=== PATIENT | female | born 1960 | race Caucasian/White ===

== ENCOUNTER 2018-01-07 12:02 | Inpatient (IN) | payer OTHER ==
[~2018-01-07] VITALS: Ht 162.6 cm; Wt 61.9 kg
[~2018-01-07 12:02] MED LIST: ACCUPRIL20 MG PO; ACCURETIC 201 TABLET PO; ACETAMINOPHEN325 M1 PO; ACETAMINOPHEN650 M7 PO; ALLERGY25 M2 PO; AMLODIPINE BESY10 MG PO; ASPIR-LOW81 MG PO; ATORVASTATIN CA40 MG PO; BACTRIM,SEPT1 TABLET PO; BISAC-EVAC10 MG PR; CATAPRES0.2 MG PO; CLONIDINE HCL0.1 MG PO; COUMADIN5 MG PO; DIOVAN80 MG PO; DOCUSATE SODIU1 EACH PO; DOCUSATE SODIU100 MG PO; DULCOLAX5 MG PO; Flonase BOTH NARES; GLUCOPHAGE1000 MG PO; HEPARIN SO5000 UNITS SC; HYDRALAZINE HCL10 MG PO; KEPPRA500 MG PO; LIDODERM 5% P1 PATCH TD; LIPITOR40 MG PO; LISINOPRIL10 MG PO; LO-DOSE ASPIRIN81 M1 PO; LORATADINE10 M2 PO; LOVENOX80 MG/0.8 SC; Lopressor PO; MAALOX ADVANCE355 ML PO; METFORMIN HCL1000 M1; METFORMIN HCL1000 MG PO; METHYLPHENIDATE20 M5 PO; METHYLPHENIDATE5 MG PO; METOPROLOL SUCC25 MG PO; METOPROLOL TAR100 MG PO; MILK OF MAGN PO; MIRTAZAPINE15 MG PO; MULTIPLE VITAM1 EAC1 PO; ONDANSETRON ODT4 MG PO; PANTOPRAZOLE SO40 MG PO; PLAVIX75 MG PO; PROMETHAZINE12.5 M1 PO; QUINAPRIL-HCTZ1 EACH PO; SIMVASTATIN40 MG PO; SPIRONOLACTONE100 MG PO; THERAGRAN1 TABLET PO; TOPROL XL100 MG PO; Thiamine,Vitamin B1 PO; Tylenol Regular Stre PO; VENLAFAXINE HCL75 MG PO; VITAMIN D-32000 UNI2 PO; VITAMIN D400 UNIT PO; WARFARIN SODIUM5 MG PO; ZOLPIDEM TARTRAT5 MG PO
[2018-01-07 12:51] LABS: HEMATOCRIT 38.9 % (36.0-46.0); MCH 25.3 PG (29.0-34.0); MCHC 33.4 G/DL (30.0-36.0); MCV 75.8 FL (83-99); PLATELET COUNT 269 K/uL (156-360); RBC DIS.WIDTH-CV 14.4 % (11.8-14.6); RBC DIS.WIDTH-SD 38.9 % (39-53); RED BLOOD COUNT 5.13 M/uL (3.80-5.20); WHITE BLOOD COUNT 8.4 K/uL (4.1-10.2)
[2018-01-07 13:20] LABS: ALBUMIN 3.4 G/DL (3.2-4.8); ALKALINE PHOSPHATASE 93 IU/L (3-129); ALT (GPT) 5 IU/L (3-49); AST (GOT) 11 IU/L (2-34); CHLORIDE 102 MEQ/L (99-109); CREATININE 1.1 MG/DL (0.6-1.3); GFR ESTIMATE (CALCULATED) 55 mL/min/; GLUCOSE 105 mg/dL (70-99); SODIUM 138 MEQ/L (136-147); TOTAL BILIRUBIN 0.5 MG/DL (0.0-1.0); TOTAL PROTEIN 6.8 G/DL (6.4-8.3); UREA NITROGEN (BUN) 11 mg/dL (9-23)
[2018-01-07 13:22] LABS: APPEARANCE TURBID ((CLEAR)); COLOR YELLOW ((YELLOW)); GLUCOSE (STRIP) NEGATIVE
[2018-01-07 13:23] LABS: BILIRUBIN NEGATIVE; BLOOD TRACE-INTACT; KETONES NEGATIVE; PH, URINE 7.5 (5-8)
[2018-01-07 13:24] LABS: TROP-I INTERPRETATION NEGATIVE; TROPONIN-I < 0.01 ng/mL (0.0-0.30)
[2018-01-07 13:24] LABS: LEUKOCYTES LARGE; NITRITE NEGATIVE; PROTEIN (STRIP) 30; UROBILINOGEN 0.2 MG/DL (0.2-1.0)
[2018-01-07 13:26] LABS: BACTERIA 4+ /HPF; EPITHELIAL CELLS 4+ /HPF; UCUL ADDED? YES; WHITE BLOOD CELLS TNTC /HPF (0-5)
[2018-01-07] MEDS ORDERED: ALDACTONE25 MG PO (14:22)
[2018-01-07] MEDS ORDERED: B-121000 MC2 PO (14:24)
[2018-01-07] MEDS ORDERED: FOLIC ACID0.4 MG PO (14:24)
[2018-01-07] MEDS ORDERED: MULTI-VITAMIN1 EAC3 PO (14:29)
[2018-01-07 14:49] LABS: INTER. NORMALIZED RATIO 1.1
[2018-01-07 15:29] LABS: HDL CHOLESTEROL 28 MG/DL (Desirable>=50); LDL CHOLESTEROL 222 mg/dL (Desirable<100); NON-HDL CHOLESTEROL 261 mg/dL (Desirable<160); TOTAL CHOLESTEROL 289 mg/dL (Desirable<200); TRIGLYCERIDES 195 MG/DL (Normal: <150)
[2018-01-07 16:48] VITALS: BP 183/103
[2018-01-07 20:47] VITALS: BP 188/116
[2018-01-08 00:37] VITALS: BP 181/111
[2018-01-08 04:18] VITALS: BP 179/97
[2018-01-08 05:42] LABS: HEMATOCRIT 35.2 % (36.0-46.0); HEMOGLOBIN 11.6 G/DL (11.9-15.5); MCH 25.1 PG (29.0-34.0); PLATELET COUNT 267 K/uL (156-360); RBC DIS.WIDTH-CV 14.6 % (11.8-14.6); RBC DIS.WIDTH-SD 39.5 % (39-53); RED BLOOD COUNT 4.63 M/uL (3.80-5.20); WHITE BLOOD COUNT 7.5 K/uL (4.1-10.2)
[2018-01-08 06:04] LABS: CHLORIDE 106 MEQ/L (99-109); GFR ESTIMATE (CALCULATED) > 59 mL/min/; GLUCOSE 91 mg/dL (70-99); POTASSIUM 3.9 MEQ/L (3.7-5.4); SODIUM 141 MEQ/L (136-147); UREA NITROGEN (BUN) 10 mg/dL (9-23)
[2018-01-08 08:20] VITALS: BP 158/108
[2018-01-08 17:08] VITALS: BP 150/93
[2018-01-08 20:00] VITALS: BP 171/95
[2018-01-08 23:19] VITALS: BP 146/77
[2018-01-09 04:14] VITALS: BP 209/112
[2018-01-09 04:45] VITALS: BP 168/94
[2018-01-09 06:55] LABS: HEMATOCRIT 44.3 % (36.0-46.0); MCH 24.4 PG (29.0-34.0); MCHC 32.1 G/DL (30.0-36.0); MCV 76.1 FL (83-99); PLATELET COUNT 263 K/uL (156-360); RBC DIS.WIDTH-CV 14.7 % (11.8-14.6); RBC DIS.WIDTH-SD 39.8 % (39-53); WHITE BLOOD COUNT 7.5 K/uL (4.1-10.2)
[2018-01-09 06:58] LABS: HEMOGLOBIN 14.2 G/DL (11.9-15.5); RED BLOOD COUNT 5.82 M/uL (3.80-5.20)
[2018-01-09 07:30] VITALS: BP 175/87
[2018-01-09 10:19] LABS: HEMOGLOBIN A1c (GLYCOHEMOGLOB) 5.8 % (Below 5.7)
[2018-01-09 11:43] VITALS: BP 115/59; BP 160/85
[2018-01-09 16:01] VITALS: BP 156/83
[2018-01-09 19:43] VITALS: BP 104/63
[2018-01-10] VITALS (7 sets, daily range): BP systolic 115–194; BP diastolic 67–100
[2018-01-11] VITALS (8 sets, daily range): BP systolic 133–183; BP diastolic 65–86
[2018-01-11 05:24] LABS: HEMATOCRIT 38.2 % (36.0-46.0); HEMOGLOBIN 12.4 G/DL (11.9-15.5); MCH 24.8 PG (29.0-34.0); MCHC 32.5 G/DL (30.0-36.0); MCV 76.4 FL (83-99); PLATELET COUNT 277 K/uL (156-360); RBC DIS.WIDTH-CV 14.8 % (11.8-14.6); RBC DIS.WIDTH-SD 40.2 % (39-53); WHITE BLOOD COUNT 6.6 K/uL (4.1-10.2)
[2018-01-11 06:00] LABS: CHLORIDE 103 MEQ/L (99-109); CREATININE 0.9 MG/DL (0.6-1.3); GFR ESTIMATE (CALCULATED) > 59 mL/min/; GLUCOSE 66 mg/dL (70-99); POTASSIUM 3.6 MEQ/L (3.7-5.4); SODIUM 135 MEQ/L (136-147); UREA NITROGEN (BUN) 11 mg/dL (9-23)
[2018-01-12 03:56] VITALS: BP 142/95
[2018-01-12 05:43] LABS: HEMATOCRIT 39.6 % (36.0-46.0); HEMOGLOBIN 12.8 G/DL (11.9-15.5); MCH 24.6 PG (29.0-34.0); MCHC 32.3 G/DL (30.0-36.0); PLATELET COUNT 288 K/uL (156-360); RBC DIS.WIDTH-CV 14.7 % (11.8-14.6); RBC DIS.WIDTH-SD 39.8 % (39-53); RED BLOOD COUNT 5.21 M/uL (3.80-5.20); WHITE BLOOD COUNT 6.9 K/uL (4.1-10.2)
[2018-01-12 06:21] LABS: CHLORIDE 105 MEQ/L (99-109); CREATININE 0.9 MG/DL (0.6-1.3); GFR ESTIMATE (CALCULATED) > 59 mL/min/; POTASSIUM 3.6 MEQ/L (3.7-5.4); SODIUM 139 MEQ/L (136-147); UREA NITROGEN (BUN) 9 mg/dL (9-23)
[2018-01-12 06:22] LABS: GLUCOSE 106 mg/dL (70-99)
[2018-01-12 07:45] VITALS: BP 163/87
[2018-01-12 12:00] VITALS: BP 170/69
[2018-01-12 15:43] VITALS: BP 171/91
[2018-01-12 19:57] VITALS: BP 182/99
[2018-01-13] VITALS (9 sets, daily range): BP systolic 150–193; BP diastolic 73–91
[2018-01-13 05:57] LABS: CHLORIDE 109 MEQ/L (99-109); CREATININE 0.9 MG/DL (0.6-1.3); GFR ESTIMATE (CALCULATED) > 59 mL/min/; GLUCOSE 125 mg/dL (70-99); POTASSIUM 3.5 MEQ/L (3.7-5.4); SODIUM 137 MEQ/L (136-147); UREA NITROGEN (BUN) 5 mg/dL (9-23)
[2018-01-14 04:46] VITALS: BP 164/71
[2018-01-14 06:27] LABS: CHLORIDE 111 MEQ/L (99-109); CREATININE 0.8 MG/DL (0.6-1.3); GFR ESTIMATE (CALCULATED) > 59 mL/min/; GLUCOSE 107 mg/dL (70-99); SODIUM 141 MEQ/L (136-147); UREA NITROGEN (BUN) 4 mg/dL (9-23)
[2018-01-14 08:00] VITALS: BP 197/88
[2018-01-14 11:09] VITALS: BP 180/90
[2018-01-14 16:00] VITALS: BP 170/87
[2018-01-14 19:25] VITALS: BP 148/81
[2018-01-14 23:38] VITALS: BP 159/99
[2018-01-15 03:33] VITALS: BP 134/90
[2018-01-15 06:03] LABS: HEMATOCRIT 39.5 % (36.0-46.0); HEMOGLOBIN 12.8 G/DL (11.9-15.5); MCHC 32.4 G/DL (30.0-36.0); PLATELET COUNT 261 K/uL (156-360); RBC DIS.WIDTH-CV 15.5 % (11.8-14.6); RBC DIS.WIDTH-SD 42.3 % (39-53); RED BLOOD COUNT 5.13 M/uL (3.80-5.20); WHITE BLOOD COUNT 6.7 K/uL (4.1-10.2)
[2018-01-15 06:24] LABS: CHLORIDE 110 MEQ/L (99-109); CREATININE 0.9 MG/DL (0.6-1.3); GFR ESTIMATE (CALCULATED) > 59 mL/min/; GLUCOSE 108 mg/dL (70-99); POTASSIUM 3.9 MEQ/L (3.7-5.4); SODIUM 140 MEQ/L (136-147); UREA NITROGEN (BUN) 4 mg/dL (9-23)
[2018-01-15 07:32] VITALS: BP 180/74
[2018-01-15 11:29] VITALS: BP 170/94
[2018-01-15 14:59] VITALS: BP 169/77
[2018-01-15 19:48] VITALS: BP 179/102
[2018-01-16] VITALS (7 sets, daily range): BP systolic 146–185; BP diastolic 81–104
[2018-01-16 05:52] LABS: BASOPHIL (%) 1.2 % (0-1); BASOPHIL COUNT 0.1 K/uL (0-0.1); EOSINOPHIL (%) 2.2 % (0-5); EOSINOPHIL COUNT 0.2 K/uL (0-0.3); HEMATOCRIT 42.4 % (36.0-46.0); HEMOGLOBIN 13.6 G/DL (11.9-15.5); IMMATURE GRANULOCYTE (%) 0.4 % (0.0-0.7); LYMPHOCYTE (%) 29.6 % (15-42); MCH 24.7 PG (29.0-34.0); MCHC 32.1 G/DL (30.0-36.0); MCV 77.1 FL (83-99); MONOCYTE (%) 7.8 % (3-12); MONOCYTE COUNT 0.5 K/uL (0-0.8); NEUTROPHIL (%) 58.8 % (45-76); PLATELET COUNT 251 K/uL (156-360); RBC DIS.WIDTH-CV 15.3 % (11.8-14.6); RBC DIS.WIDTH-SD 42.2 % (39-53); WHITE BLOOD COUNT 6.8 K/uL (4.1-10.2)
[2018-01-16 06:24] LABS: ALBUMIN 3.3 G/DL (3.2-4.8); ALKALINE PHOSPHATASE 63 IU/L (3-129); ALT (GPT) 6 IU/L (3-49); AST (GOT) 11 IU/L (2-34); CHLORIDE 102 MEQ/L (99-109); CREATININE 0.8 MG/DL (0.6-1.3); GFR ESTIMATE (CALCULATED) > 59 mL/min/; POTASSIUM 4.1 MEQ/L (3.7-5.4); SODIUM 134 MEQ/L (136-147); TOTAL BILIRUBIN 0.5 MG/DL (0.0-1.0); TOTAL PROTEIN 6.6 G/DL (6.4-8.3); UREA NITROGEN (BUN) 6 mg/dL (9-23)
[2018-01-16 06:25] LABS: GLUCOSE 78 mg/dL (70-99)
[2018-01-17 04:01] VITALS: BP 154/83
[2018-01-17 07:48] VITALS: BP 174/94
[2018-01-17 08:03] LABS: MAGNESIUM 1.7 mg/dl (1.3-2.7); PHOSPHORUS 3.9 mg/dL (2.5-4.9)
[2018-01-17 11:48] VITALS: BP 160/79
[2018-01-17 16:08] VITALS: BP 180/87
[2018-01-17 16:13] LABS: APPEARANCE TURBID ((CLEAR)); COLOR PALE STRAW ((YELLOW)); LEUKOCYTES SMALL; NITRITE NEGATIVE
[2018-01-17 16:14] LABS: BILIRUBIN NEGATIVE; BLOOD SMALL; GLUCOSE (STRIP) NEGATIVE; KETONES SMALL; PROTEIN (STRIP) 30; UROBILINOGEN 0.2 MG/DL (0.2-1.0)
[2018-01-17 17:07] LABS: EPITHELIAL CELLS 4+ /HPF
[2018-01-17 17:08] LABS: UCUL ADDED? YES
[2018-01-17 19:53] VITALS: BP 184/89
[2018-01-18] VITALS (7 sets, daily range): BP systolic 121–192; BP diastolic 65–102
[2018-01-18 06:19] LABS: BASOPHIL (%) 0.4 % (0-1); BASOPHIL COUNT 0.1 K/uL (0-0.1); EOSINOPHIL (%) 0.3 % (0-5); HEMATOCRIT 40.1 % (36.0-46.0); IMMATURE GRANULOCYTE (%) 0.3 % (0.0-0.7); LYMPHOCYTE (%) 8.5 % (15-42); MCH 24.6 PG (29.0-34.0); MCHC 32.4 G/DL (30.0-36.0); MCV 75.8 FL (83-99); MONOCYTE (%) 3.6 % (3-12); MONOCYTE COUNT 0.4 K/uL (0-0.8); NEUTROPHIL (%) 86.9 % (45-76); NEUTROPHIL COUNT 10.2 K/uL (1.8-6.4); PLATELET COUNT 262 K/uL (156-360); RBC DIS.WIDTH-CV 15.5 % (11.8-14.6); RBC DIS.WIDTH-SD 41.9 % (39-53); RED BLOOD COUNT 5.29 M/uL (3.80-5.20); WHITE BLOOD COUNT 11.8 K/uL (4.1-10.2)
[2018-01-18 06:55] LABS: ALBUMIN 3.6 G/DL (3.2-4.8); ALKALINE PHOSPHATASE 79 IU/L (3-129); ALT (GPT) 4 IU/L (3-49); AST (GOT) 8 IU/L (2-34); CHLORIDE 103 MEQ/L (99-109); CREATININE 0.9 MG/DL (0.6-1.3); GFR ESTIMATE (CALCULATED) > 59 mL/min/; PHOSPHORUS 3.8 mg/dL (2.5-4.9); POTASSIUM 3.9 MEQ/L (3.7-5.4); SODIUM 138 MEQ/L (136-147); TOTAL BILIRUBIN 0.4 MG/DL (0.0-1.0); TOTAL PROTEIN 6.5 G/DL (6.4-8.3); UREA NITROGEN (BUN) 12 mg/dL (9-23)
[2018-01-18 06:57] LABS: GLUCOSE 128 mg/dL (70-99)
[2018-01-19 04:00] VITALS: BP 145/80
[2018-01-19 05:57] LABS: BASOPHIL (%) 0.4 % (0-1); BASOPHIL COUNT 0.1 K/uL (0-0.1); EOSINOPHIL (%) 0.4 % (0-5); EOSINOPHIL COUNT 0.1 K/uL (0-0.3); HEMATOCRIT 39.9 % (36.0-46.0); HEMOGLOBIN 12.8 G/DL (11.9-15.5); IMMATURE GRANULOCYTE (%) 0.6 % (0.0-0.7); LYMPHOCYTE (%) 9.4 % (15-42); LYMPHOCYTE COUNT 1.5 K/uL (1.0-2.8); MCH 24.6 PG (29.0-34.0); MCHC 32.1 G/DL (30.0-36.0); MCV 76.7 FL (83-99); MONOCYTE (%) 4.4 % (3-12); MONOCYTE COUNT 0.7 K/uL (0-0.8); NEUTROPHIL (%) 84.8 % (45-76); NEUTROPHIL COUNT 13.5 K/uL (1.8-6.4); PLATELET COUNT 244 K/uL (156-360); RBC DIS.WIDTH-CV 15.7 % (11.8-14.6); RBC DIS.WIDTH-SD 43.2 % (39-53); WHITE BLOOD COUNT 15.9 K/uL (4.1-10.2)
[2018-01-19 06:15] LABS: ALBUMIN 3.3 G/DL (3.2-4.8); ALKALINE PHOSPHATASE 76 IU/L (3-129); ALT (GPT) 3 IU/L (3-49); CHLORIDE 100 MEQ/L (99-109); CREATININE 0.9 MG/DL (0.6-1.3); GFR ESTIMATE (CALCULATED) > 59 mL/min/; GLUCOSE 135 mg/dL (70-99); POTASSIUM 4.6 MEQ/L (3.7-5.4); SODIUM 135 MEQ/L (136-147); TOTAL PROTEIN 6.5 G/DL (6.4-8.3); UREA NITROGEN (BUN) 18 mg/dL (9-23)
[2018-01-19 06:16] LABS: AST (GOT) 12 IU/L (2-34); TOTAL BILIRUBIN 0.5 MG/DL (0.0-1.0)
[2018-01-19 06:32] LABS: MAGNESIUM 2.1 mg/dl (1.3-2.7); PHOSPHORUS 3.2 mg/dL (2.5-4.9)
[2018-01-19 07:36] VITALS: BP 150/81
[2018-01-19 11:48] VITALS: BP 155/76
[2018-01-19 16:00] VITALS: BP 141/77
[2018-01-19 20:00] VITALS: BP 133/99
[2018-01-20] VITALS: BP 123/65
[2018-01-20 00:53] LABS: HEMATOCRIT 34.8 % (36.0-46.0); HEMOGLOBIN 11.3 G/DL (11.9-15.5); MCV 77.2 FL (83-99)
[2018-01-20 04:00] VITALS: BP 126/74; BP 180/94
[2018-01-20 06:00] LABS: BASOPHIL (%) 0.7 % (0-1); BASOPHIL COUNT 0.1 K/uL (0-0.1); EOSINOPHIL (%) 1.5 % (0-5); EOSINOPHIL COUNT 0.2 K/uL (0-0.3); HEMOGLOBIN 10.6 G/DL (11.9-15.5); IMMATURE GRANULOCYTE (%) 0.5 % (0.0-0.7); LYMPHOCYTE COUNT 1.9 K/uL (1.0-2.8); MCH 24.7 PG (29.0-34.0); MCHC 32.1 G/DL (30.0-36.0); MCV 76.9 FL (83-99); MONOCYTE (%) 7.7 % (3-12); MONOCYTE COUNT 0.9 K/uL (0-0.8); NEUTROPHIL (%) 73.6 % (45-76); NEUTROPHIL COUNT 8.6 K/uL (1.8-6.4); PLATELET COUNT 226 K/uL (156-360); RBC DIS.WIDTH-SD 45.1 % (39-53); RED BLOOD COUNT 4.29 M/uL (3.80-5.20); WHITE BLOOD COUNT 11.7 K/uL (4.1-10.2)
[2018-01-20 06:41] LABS: ALBUMIN 2.9 G/DL (3.2-4.8); ALKALINE PHOSPHATASE 56 IU/L (3-129); ALT (GPT) 4 IU/L (3-49); AST (GOT) 8 IU/L (2-34); CHLORIDE 103 MEQ/L (99-109); CREATININE 0.9 MG/DL (0.6-1.3); GFR ESTIMATE (CALCULATED) > 59 mL/min/; MAGNESIUM 2.2 mg/dl (1.3-2.7); PHOSPHORUS 3.5 mg/dL (2.5-4.9); POTASSIUM 4.3 MEQ/L (3.7-5.4); SODIUM 138 MEQ/L (136-147); TOTAL BILIRUBIN 0.4 MG/DL (0.0-1.0); TOTAL PROTEIN 5.7 G/DL (6.4-8.3); UREA NITROGEN (BUN) 21 mg/dL (9-23)
[2018-01-20 06:43] LABS: GLUCOSE 88 mg/dL (70-99)
[2018-01-20 07:29] VITALS: BP 118/69
[2018-01-20 12:07] VITALS: BP 137/75
[2018-01-20 16:10] VITALS: BP 140/78
[2018-01-20 20:00] VITALS: BP 140/78
[2018-01-21] VITALS: BP 143/77
[2018-01-21 04:00] VITALS: BP 131/81
[2018-01-21 07:10] LABS: PHOSPHORUS 2.5 mg/dL (2.5-4.9)
[2018-01-21 08:04] VITALS: BP 145/71
[2018-01-21 11:00] LABS: CHLORIDE 106 MEQ/L (99-109); CREATININE 0.9 MG/DL (0.6-1.3); GFR ESTIMATE (CALCULATED) > 59 mL/min/; GLUCOSE 119 mg/dL (70-99); POTASSIUM 4.2 MEQ/L (3.7-5.4); SODIUM 140 MEQ/L (136-147); UREA NITROGEN (BUN) 17 mg/dL (9-23)
[2018-01-21 12:22] VITALS: BP 140/73
[2018-01-21 13:19] LABS: HEMOGLOBIN 10.1 G/DL (11.9-15.5); MCH 24.7 PG (29.0-34.0); MCHC 31.6 G/DL (30.0-36.0); MCV 78.2 FL (83-99); PLATELET COUNT 210 K/uL (156-360); RBC DIS.WIDTH-CV 15.7 % (11.8-14.6); RBC DIS.WIDTH-SD 43.8 % (39-53); RED BLOOD COUNT 4.09 M/uL (3.80-5.20); WHITE BLOOD COUNT 8.7 K/uL (4.1-10.2)
[2018-01-21 16:00] VITALS: BP 124/80
[2018-01-21 19:29] VITALS: BP 128/79
[2018-01-22 00:34] VITALS: BP 147/71
[2018-01-22 03:28] VITALS: BP 167/76
[2018-01-22 07:05] LABS: MAGNESIUM 2.2 mg/dl (1.3-2.7)
[2018-01-22 07:08] LABS: PHOSPHORUS 3.5 mg/dL (2.5-4.9)
[2018-01-22 08:01] VITALS: BP 152/67
[2018-01-22 11:29] VITALS: BP 130/72
[2018-01-22] MEDS ORDERED: AMLODIPINE BESY10 MG GT (13:01)
[2018-01-22] MEDS ORDERED: LOSARTAN POTASS50 MG GT (13:01)
[2018-01-22] MEDS ORDERED: CLOPIDOGREL75 MG GT (13:01)
[2018-01-22] MEDS ORDERED: ATORVASTATIN CA80 MG GT (13:01)
[2018-01-22] MEDS ORDERED: LEVETIRACE100 MG/1 M GT (13:02)
[2018-01-22] MEDS ORDERED: PREVACID SOLUTA30 MG GT (13:02)
[2018-01-22] MEDS ORDERED: ASPIRIN81 M2 GT (13:02)
[2018-01-22] MEDS ORDERED: CYANOCOBALAM1000 MCG GT (13:02)
[2018-01-22] MEDS ORDERED: VITAMIN D3400 UNIT/1 GT (13:03)
[2018-01-22] MEDS ORDERED: AUGMENTIN80 MG/ML GT (13:03)
== END 2018-01-22 15:53 | DRG 100 ==
LOC: EME → EDBD 12:02 → EDOF 14:05 → 5SOUTH 14:05 → ENRESERV 14:06 → 5SOUTH 15:37
PROVIDERS: Emergency Medicine Emergency Medical Services; Family Medicine; Hospitalist; Internal Medicine; Nurse Practitioner Adult Health
PROC: 0DH63UZ Insertion of Feeding Device into Stomach, Percutaneous Approach (ICD-10-PCS; principal; 2018-01-16)
DX: G40.909 Epilepsy, unspecified, not intractable, without status epilepticus (principal); I63.3 Cerebral infarction due to thrombosis of cerebral arteries; N17.9 Acute kidney failure, unspecified; E46 Unspecified protein-calorie malnutrition; E11.22 Type 2 diabetes mellitus with diabetic chronic kidney disease; R13.10 Dysphagia, unspecified; E11.649 Type 2 diabetes mellitus with hypoglycemia without coma; N39.0 Urinary tract infection, site not specified; I12.9 Hypertensive chronic kidney disease with stage 1 through stage 4 chronic kidney disease, or unspecified chronic kidney disease; I16.0 Hypertensive urgency; N18.2 Chronic kidney disease, stage 2 (mild); B96.20 Unspecified Escherichia coli [E. coli] as the cause of diseases classified elsewhere; E87.6 Hypokalemia; I25.10 Atherosclerotic heart disease of native coronary artery without angina pectoris; J44.9 Chronic obstructive pulmonary disease, unspecified; E78.5 Hyperlipidemia, unspecified; I69.351 Hemiplegia and hemiparesis following cerebral infarction affecting right dominant side; Z79.82 Long term (current) use of aspirin; Z79.02 Long term (current) use of antithrombotics/antiplatelets; Z79.84 Long term (current) use of oral hypoglycemic drugs; Z87.440 Personal history of urinary (tract) infections; Z87.891 Personal history of nicotine dependence
CPT/HCPCS: 70450; 70551; 70553; 71045; 80048; 80053; 80061; 81003; 82272; 82948; 83036; 83735; 83880; 84100; 84484; 85014; 85018; 85025; 85027; 85610; 85651; 85730; 87077; 87086; 87086 GA; 87186; 92523 GN; 92526 GN; 92610 GN; 93005; 93306; 93880; 94799; 95819; 97530 GO; 97530 GP; 99202; 99281; 99285; A6214; C9113; J0295; J0360; J0690; J0696; J1650; J1953; J2405; J2997; J3480; J7030; J7042; J7050

== ENCOUNTER → 2018-03-05 | Outpatient (CLI) | payer OTHER ==
[~2018-03-05] MED LIST changes: +ALDACTONE25 MG PO; +AMLODIPINE BESY10 MG GT; +ASPIRIN81 M2 GT; +ATORVASTATIN CA80 MG GT; +AUGMENTIN80 MG/ML GT; +B-121000 MC2 PO; +CLOPIDOGREL75 MG GT; +CYANOCOBALAM1000 MCG GT; +FOLIC ACID0.4 MG PO; +LEVETIRACE100 MG/1 M GT; +LOSARTAN POTASS50 MG GT; +MULTI-VITAMIN1 EAC3 PO; +PREVACID SOLUTA30 MG GT; +VITAMIN D3400 UNIT/1 GT
== END | disposition home or self-care (01) ==
LOC: RAD 10:00
DX: I69.391 Dysphagia following cerebral infarction (principal); R13.12 Dysphagia, oropharyngeal phase
CPT/HCPCS: 74230; 92611 GN; G8996 GN CL; G8997 GN CL; G8998 GN CL